=== PATIENT | female | born 1940 ===

== ENCOUNTER 2017-10-12 16:58 | Inpatient (IN) ==
[2017-10-12] MEDS ORDERED: SODIUM CHLORIDE 0.9% 500 ML IV STA (17:36)
[2017-10-12] MEDS ORDERED: PIPERACILLIN/TAZOBACTAM 3,375 MG in SODIUM CHLORIDE 0.9% 100 ML IV STA (17:36)
[2017-10-12] MEDS ORDERED: FUROSEMIDE 40 MG/4 ML VIAL IV STA (17:54)
[2017-10-12 18:09] LABS: Basophils % 0.1 % (0.0-0.8); Hematocrit 29.7 VOL% (35.7-47.0); Hemoglobin 10.1 GM/DL (12.0-16.0); Immature Granulocytes % 0.7 %; Immature Granulocytes Absolute 0.15 #; Lymphocytes % 4.7 % (21.3-54.2); Mean Corpuscular Hemoglobin 30 PG (27-34); Mean Corpuscular Volume 88.9 FL (87-102); Mean Platelet Volume 9.6 FL (9.6-12.0); Monocytes # 1.8 10*3/uL (0.11-0.8); Monocytes % 8.6 % (1.7-12.7); Neutrophils # 17.9 10*3/uL (1.4-7.4); Neutrophils % 85.9 % (38.7-73.9); Platelet Count 261 T/CUMM (130-400); Red Blood Count 3.34 MC/CUMM (3.8-5.5); Red Cell Distribution Width 13.2 % (9.3-17.3); White Blood Count 20.8 T/CUMM (4-12)
[2017-10-12 18:25] LABS: INR 1.1; PT Patient Result 11.4 SECS
[2017-10-12 18:30] LABS: Lactic Acid 1.2 MMOL/L (0.4-2.0)
[2017-10-12 18:31] LABS: Albumin 2.9 G/DL (3.4-5.0); Bilirubin,Total 0.9 MG/DL (0.2-1.0); Calcium 7.9 MG/DL (8.5-10.1); Osmolality,Calculated 271.7 MOS/KG (273-304); Potassium 3.3 MMOL/L (3.5-5.1); Total Protein 7.3 G/DL (6.4-8.3)
[2017-10-12 18:40] LABS: Lymphocytes 4 % (20-55); Segmented Neutrophils 88 % (50-85); Total Cells Counted 100
[2017-10-12] MEDS ORDERED: ACETAMINOPHEN 325 MG TABLET PO PRN (19:42)
[2017-10-12] MEDS ORDERED: MORPHINE 4 MG/1 ML VIAL IV PRN (19:42)
[2017-10-12] MEDS ORDERED: DEXTROSE 50% 25 GM/50 ML VIAL IV PRN (19:42)
[2017-10-12] MEDS ORDERED: ONDANSETRON 4 MG/2 ML VIAL IV PRN (19:42)
[2017-10-12] MEDS ORDERED: SODIUM CHLORIDE 0.9% 1,000 ML IV SCH (19:42)
[2017-10-12] MEDS ORDERED: GLUCAGON 1 MG VIAL IM PRN (19:42)
[2017-10-12] MEDS: VANCOMYCIN INJ 1,000 MG in SODIUM CHLORIDE 0.9% 250 ML IV SCH (21:37)
[2017-10-12] MEDS: POTASSIUM CHLORIDE 20 MEQ TABLET PO SCH (21:37)
[2017-10-12] MEDS: INSULIN REGULAR 100 UNIT/ML SUBCUT SCH (21:38)
[2017-10-13] MEDS ORDERED: PIPERACILLIN/TAZOBACTAM 3,375 MG in SODIUM CHLORIDE 0.9% 100 ML IV SCH (01:30)
[2017-10-13 07:03] LABS: Basophils % 0.1 % (0.0-0.8); Immature Granulocytes % 1.2 %; Immature Granulocytes Absolute 0.28 #; Lymphocytes # 1.3 10*3/uL (1.4-4.0); Lymphocytes % 5.3 % (21.3-54.2); Mean Corpuscular HGB Conc 34.6 GM/DL (32-36); Mean Corpuscular Hemoglobin 30 PG (27-34); Mean Corpuscular Volume 87.2 FL (87-102); Monocytes # 2.3 10*3/uL (0.11-0.8); Monocytes % 9.7 % (1.7-12.7); Neutrophils # 19.6 10*3/uL (1.4-7.4); Neutrophils % 83.7 % (38.7-73.9); Platelet Count 252 T/CUMM (130-400); Red Blood Count 2.98 MC/CUMM (3.8-5.5); Red Cell Distribution Width 13.4 % (9.3-17.3); White Blood Count 23.5 T/CUMM (4-12)
[2017-10-13 07:23] LABS: Band Neutrophils 2 % (0-10); Hypochromasia 1+; Lymphocytes 4 % (20-55); Microcytosis 1+; Ovalocytes Slight; Segmented Neutrophils 92 % (50-85); Total Cells Counted 100
[2017-10-13 07:24] LABS: Platelet Estimate Normal
[2017-10-13] MEDS: INSULIN REGULAR 100 UNIT/ML SUBCUT SCH ×4 (07:28→20:44)
[2017-10-13 07:35] LABS: Albumin 2.6 G/DL (3.4-5.0); Bilirubin,Total 1.7 MG/DL (0.2-1.0); Calcium 7.6 MG/DL (8.5-10.1); Osmolality,Calculated 273.2 MOS/KG (273-304); Potassium 3.7 MMOL/L (3.5-5.1); Total Protein 6.4 G/DL (6.4-8.3)
[2017-10-13] MEDS: LACTATED RINGERS 1,000 ML IV SCH (07:46)
[2017-10-13] MEDS ORDERED: BUPIVACAINE MPF 0.25% 30 ML VIAL ONE (07:49)
[2017-10-13] MEDS ORDERED: LIDOCAINE 1% 20 ML VIAL ONE (07:49)
[2017-10-13] MEDS: VANCOMYCIN INJ 1,000 MG in SODIUM CHLORIDE 0.9% 250 ML IV SCH ×2 (09:00→20:48)
[2017-10-13] MEDS ORDERED: SEVOFLURANE 1 UNIT/15 MINUTE INH ONE (09:17)
[2017-10-13] MEDS ORDERED: fentaNYL 100 MCG/2 ML VIAL ONE (09:17)
[2017-10-13] MEDS ORDERED: DEXAMETHASONE 10 MG/1 ML VIAL ONE (09:17)
[2017-10-13] MEDS ORDERED: PROPOFOL 200 MG/20 ML VIAL IV ONE (09:17)
[2017-10-13] MEDS ORDERED: PHENYLEPHRINE 1 MG/10 ML SYRINGE IV ONE (09:18)
[2017-10-13] MEDS ORDERED: ONDANSETRON 4 MG/2 ML VIAL ONE (09:18)
[2017-10-13] MEDS ORDERED: ETOMIDATE 40 MG/20 ML VIAL IV ONE (09:18)
[2017-10-13] MEDS: FUROSEMIDE 20 MG/2 ML VIAL IV SCH ×2 (10:20→17:00)
[2017-10-13] MEDS ORDERED: GLUCAGON 1 MG VIAL IM PRN (11:52)
[2017-10-13] MEDS ORDERED: DEXTROSE 50% 25 GM/50 ML VIAL IV PRN (11:52)
[2017-10-13] MEDS: POTASSIUM CHLORIDE 20 MEQ TABLET PO SCH (13:31)
[2017-10-13] MEDS: ENOXAPARIN 40 MG/0.4 ML SYRINGE SUBCUT SCH (13:32)
[2017-10-13] MEDS: PANTOPRAZOLE 40 MG TABLET PO SCH (13:32)
[2017-10-13] MEDS: MAGNESIUM OXIDE 400 MG TABLET PO SCH ×2 (15:38→20:44)
[2017-10-14] MEDS: PIPERACILLIN/TAZOBACTAM 3,375 MG in SODIUM CHLORIDE 0.9% 100 ML IV SCH ×3 (01:30→18:55)
[2017-10-14] MEDS: LACTATED RINGERS 1,000 ML IV SCH (08:00)
[2017-10-14] MEDS: INSULIN REGULAR 100 UNIT/ML SUBCUT SCH ×4 (10:00→20:52)
[2017-10-14] MEDS: POTASSIUM CHLORIDE 20 MEQ TABLET PO SCH (10:02)
[2017-10-14] MEDS: ENOXAPARIN 40 MG/0.4 ML SYRINGE SUBCUT SCH (10:02)
[2017-10-14] MEDS: FUROSEMIDE 20 MG/2 ML VIAL IV SCH ×2 (10:02→15:21)
[2017-10-14] MEDS: MAGNESIUM OXIDE 400 MG TABLET PO SCH ×3 (10:03→20:52)
[2017-10-14] MEDS: PANTOPRAZOLE 40 MG TABLET PO SCH (10:03)
[2017-10-14] MEDS: VANCOMYCIN INJ 1,000 MG in SODIUM CHLORIDE 0.9% 250 ML IV SCH ×2 (10:05→22:00)
[2017-10-15] MEDS: PIPERACILLIN/TAZOBACTAM 3,375 MG in SODIUM CHLORIDE 0.9% 100 ML IV SCH ×3 (02:56→21:29)
[2017-10-15] MEDS ORDERED: HEPARIN/NACL 0.9% 2 UNITS/ML 2,000 ML IV ONE (07:29)
[2017-10-15] MEDS ORDERED: fentaNYL 100 MCG/2 ML VIAL IV ONE (07:53)
[2017-10-15] MEDS ORDERED: MIDAZOLAM 2 MG/2 ML VIAL IV ONE (07:53)
[2017-10-15] MEDS ORDERED: HEPARIN 5,000 UNIT/1 ML VIAL IV ONE (07:53)
[2017-10-15] MEDS ORDERED: DIAZEPAM 5 MG TABLET PO ONE (07:53)
[2017-10-15] MEDS: INSULIN REGULAR 100 UNIT/ML SUBCUT SCH ×4 (08:14→21:27)
[2017-10-15] MEDS: SODIUM CHLORIDE 0.45% 1,000 ML IV SCH (08:30)
[2017-10-15] MEDS: FUROSEMIDE 20 MG/2 ML VIAL IV SCH ×2 (08:33→16:37)
[2017-10-15] MEDS ORDERED: fentaNYL 100 MCG/2 ML VIAL ONE ×2 (08:55→09:04)
[2017-10-15] MEDS ORDERED: MIDAZOLAM 2 MG/2 ML VIAL ONE ×2 (08:56→09:04)
[2017-10-15] MEDS: PANTOPRAZOLE 40 MG TABLET PO SCH (09:00)
[2017-10-15] MEDS: ENOXAPARIN 40 MG/0.4 ML SYRINGE SUBCUT SCH (09:00)
[2017-10-15] MEDS: MAGNESIUM OXIDE 400 MG TABLET PO SCH ×3 (09:00→21:27)
[2017-10-15] MEDS: POTASSIUM CHLORIDE 20 MEQ TABLET PO SCH (09:00)
[2017-10-15] MEDS ORDERED: HEPARIN 5,000 UNIT/1 ML VIAL ONE (09:08)
[2017-10-15 09:12] LABS: Osmolality,Calculated 285.1 MOS/KG (273-304); Potassium 5.1 MMOL/L (3.5-5.1)
[2017-10-15] MEDS: LACTATED RINGERS 1,000 ML IV SCH (09:55)
[2017-10-15] MEDS ORDERED: HEPARIN 5,000 UNIT/1 ML VIAL IV PRN ×2 (10:36→10:37)
[2017-10-15 10:54] LABS: Basophils % 0.1 % (0.0-0.8); Hematocrit 30.6 VOL% (35.7-47.0); Hemoglobin 10.4 GM/DL (12.0-16.0); Immature Granulocytes % 1.1 %; Immature Granulocytes Absolute 0.32 #; Lymphocytes # 1.2 10*3/uL (1.4-4.0); Mean Corpuscular Hemoglobin 31 PG (27-34); Mean Corpuscular Volume 90.3 FL (87-102); Mean Platelet Volume 10.4 FL (9.6-12.0); Monocytes % 6.7 % (1.7-12.7); Neutrophils # 26.4 10*3/uL (1.4-7.4); Neutrophils % 88.1 % (38.7-73.9); Platelet Count 346 T/CUMM (130-400); Red Blood Count 3.39 MC/CUMM (3.8-5.5); Red Cell Distribution Width 13.7 % (9.3-17.3)
[2017-10-15 11:12] LABS: Lymphocytes 4 % (20-55); Platelet Estimate Adequate; Segmented Neutrophils 87 % (50-85); Total Cells Counted 100
[2017-10-15 11:13] LABS: Hypochromasia 1+; Microcytosis 1+; Ovalocytes Slight
[2017-10-15 13:29] LABS: Calcium 7.9 MG/DL (8.5-10.1); Osmolality,Calculated 282.2 MOS/KG (273-304); Potassium 4.6 MMOL/L (3.5-5.1)
[2017-10-15] MEDS ORDERED: CLOPIDOGREL 300 MG TABLET PO ONE (13:30)
[2017-10-16] MEDS: PIPERACILLIN/TAZOBACTAM 3,375 MG in SODIUM CHLORIDE 0.9% 100 ML IV SCH ×3 (05:45→20:22)
[2017-10-16 06:10] LABS: Basophils % 0.2 % (0.0-0.8); Eosinophils # 0.4 10*3/uL (0.0-0.87); Eosinophils % 2.2 % (0.00-10.9); Hemoglobin 10.1 GM/DL (12.0-16.0); Immature Granulocytes % 1.1 %; Lymphocytes # 1.4 10*3/uL (1.4-4.0); Lymphocytes % 8.3 % (21.3-54.2); Mean Corpuscular HGB Conc 34.8 GM/DL (32-36); Mean Corpuscular Hemoglobin 31 PG (27-34); Mean Corpuscular Volume 88.4 FL (87-102); Mean Platelet Volume 10.2 FL (9.6-12.0); Monocytes # 1.2 10*3/uL (0.11-0.8); Monocytes % 7.1 % (1.7-12.7); Neutrophils # 14.2 10*3/uL (1.4-7.4); Neutrophils % 81.1 % (38.7-73.9); Platelet Count 333 T/CUMM (130-400); Red Blood Count 3.28 MC/CUMM (3.8-5.5); Red Cell Distribution Width 13.8 % (9.3-17.3); White Blood Count 17.4 T/CUMM (4-12)
[2017-10-16 06:35] LABS: Calcium 7.6 MG/DL (8.5-10.1); Osmolality,Calculated 285.1 MOS/KG (273-304); Potassium 4.1 MMOL/L (3.5-5.1)
[2017-10-16] MEDS: LACTATED RINGERS 1,000 ML IV SCH (08:11)
[2017-10-16] MEDS: VANCOMYCIN INJ 1,000 MG in SODIUM CHLORIDE 0.9% 250 ML IV SCH (09:09)
[2017-10-16] MEDS: FUROSEMIDE 20 MG/2 ML VIAL IV SCH ×2 (09:12→15:58)
[2017-10-16] MEDS: INSULIN REGULAR 100 UNIT/ML SUBCUT SCH ×4 (09:16→20:19)
[2017-10-16] MEDS: ENOXAPARIN 40 MG/0.4 ML SYRINGE SUBCUT SCH (09:16)
[2017-10-16] MEDS: PANTOPRAZOLE 40 MG TABLET PO SCH (09:17)
[2017-10-16] MEDS: MAGNESIUM OXIDE 400 MG TABLET PO SCH ×3 (09:17→20:19)
[2017-10-16] MEDS: CLOPIDOGREL 75 MG TABLET PO SCH (09:17)
[2017-10-16] MEDS: POTASSIUM CHLORIDE 20 MEQ TABLET PO SCH (09:17)
[2017-10-16 18:40] LABS: Apearance,Urine CLEAR (Clear); Bacteria,Urine Occasional /HPF (Few); Bilirubin,Urine Negative (Negative); Blood, Urine Small mg/dL (Negative); Glucose,Urine (UA) Negative (Negative); Ketones,Urine Negative (Negative); Mucus,Urine Occasional /LPF (Occasional); Nitrite,Urine Negative (Negative); Protein,Urine Negative; RBC,Urine 1 /HPF (0-4); Squamous Epithelial Cell,Urine Occasional /HPF (0-10); Urine Color Straw (Yellow); Urine Specific Gravity 1.009 (1.001-1.035); Urine Urobilinogen < 2.0 EU/DL (0.2-1.0); WBC,Urine 2 /HPF (0-6)
[2017-10-17] MEDS: PIPERACILLIN/TAZOBACTAM 3,375 MG in SODIUM CHLORIDE 0.9% 100 ML IV SCH ×3 (04:06→20:32)
[2017-10-17] MEDS: SODIUM CHLORIDE 0.45% 1,000 ML IV SCH (04:06)
[2017-10-17 06:35] LABS: Basophils % 0.3 % (0.0-0.8); Eosinophils # 0.6 10*3/uL (0.0-0.87); Eosinophils % 3.6 % (0.00-10.9); Hematocrit 28.2 VOL% (35.7-47.0); Hemoglobin 9.4 GM/DL (12.0-16.0); Immature Granulocytes % 1.6 %; Immature Granulocytes Absolute 0.25 #; Lymphocytes # 1.5 10*3/uL (1.4-4.0); Lymphocytes % 9.9 % (21.3-54.2); Mean Corpuscular HGB Conc 33.3 GM/DL (32-36); Mean Corpuscular Hemoglobin 30 PG (27-34); Mean Platelet Volume 9.8 FL (9.6-12.0); Monocytes # 1.2 10*3/uL (0.11-0.8); Monocytes % 7.6 % (1.7-12.7); NRBC # 0.02 10*3/uL; Neutrophils # 11.9 10*3/uL (1.4-7.4); Platelet Count 332 T/CUMM (130-400); Red Cell Distribution Width 13.9 % (9.3-17.3); White Blood Count 15.4 T/CUMM (4-12)
[2017-10-17 06:54] LABS: Calcium 7.7 MG/DL (8.5-10.1); Potassium 4.4 MMOL/L (3.5-5.1)
[2017-10-17] MEDS: FUROSEMIDE 20 MG/2 ML VIAL IV SCH ×2 (09:44→18:43)
[2017-10-17] MEDS: MAGNESIUM OXIDE 400 MG TABLET PO SCH ×3 (09:47→20:32)
[2017-10-17] MEDS: VANCOMYCIN INJ 1,000 MG in SODIUM CHLORIDE 0.9% 250 ML IV SCH (09:47)
[2017-10-17] MEDS: PANTOPRAZOLE 40 MG TABLET PO SCH (09:47)
[2017-10-17] MEDS: CLOPIDOGREL 75 MG TABLET PO SCH (09:47)
[2017-10-17] MEDS: POTASSIUM CHLORIDE 20 MEQ TABLET PO SCH (09:47)
[2017-10-17] MEDS: ENOXAPARIN 40 MG/0.4 ML SYRINGE SUBCUT SCH (09:48)
[2017-10-17] MEDS: INSULIN REGULAR 100 UNIT/ML SUBCUT SCH ×4 (09:48→20:33)
[2017-10-18] MEDS: SODIUM CHLORIDE 0.45% 1,000 ML IV SCH (02:18)
[2017-10-18] MEDS: PIPERACILLIN/TAZOBACTAM 3,375 MG in SODIUM CHLORIDE 0.9% 100 ML IV SCH ×3 (04:15→20:47)
[2017-10-18 04:17] LABS: Basophils % 0.2 % (0.0-0.8); Eosinophils # 0.6 10*3/uL (0.0-0.87); Eosinophils % 3.5 % (0.00-10.9); Hematocrit 28.2 VOL% (35.7-47.0); Hemoglobin 9.4 GM/DL (12.0-16.0); Immature Granulocytes % 1.3 %; Immature Granulocytes Absolute 0.23 #; Lymphocytes # 1.4 10*3/uL (1.4-4.0); Lymphocytes % 8.1 % (21.3-54.2); Mean Corpuscular HGB Conc 33.3 GM/DL (32-36); Mean Corpuscular Hemoglobin 30 PG (27-34); Mean Platelet Volume 9.2 FL (9.6-12.0); Monocytes # 1.3 10*3/uL (0.11-0.8); Monocytes % 7.7 % (1.7-12.7); Neutrophils # 13.6 10*3/uL (1.4-7.4); Neutrophils % 79.2 % (38.7-73.9); Platelet Count 333 T/CUMM (130-400); Red Cell Distribution Width 13.9 % (9.3-17.3); White Blood Count 17.2 T/CUMM (4-12)
[2017-10-18 04:45] LABS: Calcium 8.1 MG/DL (8.5-10.1); Potassium 4.7 MMOL/L (3.5-5.1)
[2017-10-18] MEDS: INSULIN REGULAR 100 UNIT/ML SUBCUT SCH ×4 (09:26→20:50)
[2017-10-18] MEDS: VANCOMYCIN INJ 1,000 MG in SODIUM CHLORIDE 0.9% 250 ML IV SCH (09:28)
[2017-10-18] MEDS: PANTOPRAZOLE 40 MG TABLET PO SCH (09:33)
[2017-10-18] MEDS: CLOPIDOGREL 75 MG TABLET PO SCH (09:34)
[2017-10-18] MEDS: POTASSIUM CHLORIDE 20 MEQ TABLET PO SCH (09:35)
[2017-10-18] MEDS: ENOXAPARIN 40 MG/0.4 ML SYRINGE SUBCUT SCH (09:39)
[2017-10-18] MEDS: MAGNESIUM OXIDE 400 MG TABLET PO SCH ×3 (09:41→20:45)
[2017-10-18] MEDS: FUROSEMIDE 20 MG/2 ML VIAL IV SCH (09:42)
[2017-10-18] MEDS ORDERED: amLODIPine 5 MG TABLET PO SCH (12:00)
[2017-10-18] MEDS: CARVEDILOL 3.125 MG TABLET PO SCH ×2 (13:17→20:50)
[2017-10-18] MEDS: INSULIN NPH/REGULAR 70/30 100 UNIT/ML SUBCUT SCH (18:15)
[2017-10-18] MEDS: SIMVASTATIN 20 MG TABLET PO SCH (20:45)
[2017-10-19] MEDS: PIPERACILLIN/TAZOBACTAM 3,375 MG in SODIUM CHLORIDE 0.9% 100 ML IV SCH ×3 (04:47→21:18)
[2017-10-19 07:02] LABS: Basophils # 0.1 10*3/uL (0.0-0.2); Basophils % 0.3 % (0.0-0.8); Eosinophils # 0.8 10*3/uL (0.0-0.87); Eosinophils % 4.5 % (0.00-10.9); Hematocrit 28.4 VOL% (35.7-47.0); Hemoglobin 9.4 GM/DL (12.0-16.0); Immature Granulocytes % 1.1 %; Immature Granulocytes Absolute 0.18 #; Lymphocytes # 1.1 10*3/uL (1.4-4.0); Lymphocytes % 6.8 % (21.3-54.2); Mean Corpuscular HGB Conc 33.1 GM/DL (32-36); Mean Corpuscular Hemoglobin 30 PG (27-34); Mean Corpuscular Volume 90.2 FL (87-102); Monocytes # 1.4 10*3/uL (0.11-0.8); Monocytes % 8.1 % (1.7-12.7); Neutrophils # 13.3 10*3/uL (1.4-7.4); Neutrophils % 79.2 % (38.7-73.9); Platelet Count 346 T/CUMM (130-400); Red Blood Count 3.15 MC/CUMM (3.8-5.5); Red Cell Distribution Width 14.2 % (9.3-17.3); White Blood Count 16.7 T/CUMM (4-12)
[2017-10-19] MEDS ORDERED: LIDOCAINE 1% 20 ML VIAL ONE (07:16)
[2017-10-19] MEDS: INSULIN REGULAR 100 UNIT/ML SUBCUT SCH ×4 (07:30→20:42)
[2017-10-19] MEDS: INSULIN NPH/REGULAR 70/30 100 UNIT/ML SUBCUT SCH ×2 (07:30→15:56)
[2017-10-19 07:37] LABS: Albumin 1.9 G/DL (3.4-5.0); Bilirubin,Total 0.7 MG/DL (0.2-1.0); Osmolality,Calculated 274.1 MOS/KG (273-304); Potassium 4.6 MMOL/L (3.5-5.1); Total Protein 6.3 G/DL (6.4-8.3)
[2017-10-19] MEDS ORDERED: PROPOFOL 200 MG/20 ML VIAL IV ONE (07:49)
[2017-10-19] MEDS ORDERED: ONDANSETRON 4 MG/2 ML VIAL ONE (07:50)
[2017-10-19] MEDS ORDERED: SEVOFLURANE 1 UNIT/15 MINUTE INH ONE (07:50)
[2017-10-19] MEDS: CARVEDILOL 3.125 MG TABLET PO SCH ×3 (08:45→21:18)
[2017-10-19] MEDS: MAGNESIUM OXIDE 400 MG TABLET PO SCH ×3 (08:45→21:18)
[2017-10-19] MEDS: POTASSIUM CHLORIDE 20 MEQ TABLET PO SCH (08:45)
[2017-10-19] MEDS: ENOXAPARIN 40 MG/0.4 ML SYRINGE SUBCUT SCH (08:46)
[2017-10-19] MEDS: PANTOPRAZOLE 40 MG TABLET PO SCH (08:46)
[2017-10-19] MEDS: CLOPIDOGREL 75 MG TABLET PO SCH (08:46)
[2017-10-19] MEDS: FUROSEMIDE 20 MG TABLET PO SCH (08:46)
[2017-10-19] MEDS: VANCOMYCIN INJ 1,000 MG in SODIUM CHLORIDE 0.9% 250 ML IV SCH (12:15)
[2017-10-19] MEDS: amLODIPine 10 MG TABLET PO SCH (14:37)
[2017-10-19] MEDS: SIMVASTATIN 20 MG TABLET PO SCH (21:18)
[2017-10-20] MEDS: PIPERACILLIN/TAZOBACTAM 3,375 MG in SODIUM CHLORIDE 0.9% 100 ML IV SCH ×3 (05:33→23:18)
[2017-10-20 05:47] LABS: Basophils % 0.2 % (0.0-0.8); Eosinophils # 0.5 10*3/uL (0.0-0.87); Hematocrit 28.6 VOL% (35.7-47.0); Hemoglobin 9.3 GM/DL (12.0-16.0); Immature Granulocytes % 1.1 %; Immature Granulocytes Absolute 0.15 #; Lymphocytes # 1.1 10*3/uL (1.4-4.0); Lymphocytes % 8.2 % (21.3-54.2); Mean Corpuscular HGB Conc 32.5 GM/DL (32-36); Mean Corpuscular Hemoglobin 30 PG (27-34); Mean Corpuscular Volume 93.5 FL (87-102); Mean Platelet Volume 9.3 FL (9.6-12.0); Monocytes # 1.1 10*3/uL (0.11-0.8); Monocytes % 8.4 % (1.7-12.7); Neutrophils # 10.4 10*3/uL (1.4-7.4); Neutrophils % 78.1 % (38.7-73.9); Platelet Count 357 T/CUMM (130-400); Red Blood Count 3.06 MC/CUMM (3.8-5.5); Red Cell Distribution Width 14.4 % (9.3-17.3); White Blood Count 13.3 T/CUMM (4-12)
[2017-10-20 06:07] LABS: Calcium 7.8 MG/DL (8.5-10.1); Potassium 4.9 MMOL/L (3.5-5.1)
[2017-10-20] MEDS: INSULIN REGULAR 100 UNIT/ML SUBCUT SCH ×4 (09:56→21:35)
[2017-10-20] MEDS: PANTOPRAZOLE 40 MG TABLET PO SCH (11:21)
[2017-10-20] MEDS: amLODIPine 10 MG TABLET PO SCH (11:22)
[2017-10-20] MEDS: POTASSIUM CHLORIDE 20 MEQ TABLET PO SCH (11:22)
[2017-10-20] MEDS: CARVEDILOL 3.125 MG TABLET PO SCH ×2 (11:22→21:13)
[2017-10-20] MEDS: FUROSEMIDE 20 MG TABLET PO SCH (11:22)
[2017-10-20] MEDS: MAGNESIUM OXIDE 400 MG TABLET PO SCH ×3 (11:22→21:14)
[2017-10-20] MEDS: ENOXAPARIN 40 MG/0.4 ML SYRINGE SUBCUT SCH (11:23)
[2017-10-20] MEDS: CLOPIDOGREL 75 MG TABLET PO SCH (11:23)
[2017-10-20] MEDS: VANCOMYCIN INJ 1,000 MG in SODIUM CHLORIDE 0.9% 250 ML IV SCH (11:24)
[2017-10-20] MEDS: INSULIN NPH/REGULAR 70/30 100 UNIT/ML SUBCUT SCH ×2 (12:06→17:17)
[2017-10-20] MEDS: SIMVASTATIN 20 MG TABLET PO SCH (21:14)
[2017-10-21 06:15] LABS: Basophils % 0.2 % (0.0-0.8); Eosinophils # 0.4 10*3/uL (0.0-0.87); Eosinophils % 3.3 % (0.00-10.9); Hematocrit 26.2 VOL% (35.7-47.0); Hemoglobin 8.5 GM/DL (12.0-16.0); Immature Granulocytes % 1.2 %; Immature Granulocytes Absolute 0.15 #; Lymphocytes # 1.1 10*3/uL (1.4-4.0); Lymphocytes % 8.6 % (21.3-54.2); Mean Corpuscular HGB Conc 32.4 GM/DL (32-36); Mean Corpuscular Hemoglobin 30 PG (27-34); Mean Platelet Volume 9.1 FL (9.6-12.0); Monocytes # 1.4 10*3/uL (0.11-0.8); Monocytes % 11.2 % (1.7-12.7); Neutrophils # 9.6 10*3/uL (1.4-7.4); Neutrophils % 75.5 % (38.7-73.9); Platelet Count 334 T/CUMM (130-400); Red Blood Count 2.88 MC/CUMM (3.8-5.5); Red Cell Distribution Width 14.2 % (9.3-17.3); White Blood Count 12.8 T/CUMM (4-12)
[2017-10-21 06:45] LABS: Calcium 7.7 MG/DL (8.5-10.1); Potassium 4.4 MMOL/L (3.5-5.1)
[2017-10-21] MEDS: INSULIN REGULAR 100 UNIT/ML SUBCUT SCH ×4 (08:03→20:50)
[2017-10-21] MEDS: INSULIN NPH/REGULAR 70/30 100 UNIT/ML SUBCUT SCH ×2 (08:13→17:03)
[2017-10-21] MEDS: PANTOPRAZOLE 40 MG TABLET PO SCH (11:10)
[2017-10-21] MEDS: CLOPIDOGREL 75 MG TABLET PO SCH (11:10)
[2017-10-21] MEDS: amLODIPine 10 MG TABLET PO SCH (11:10)
[2017-10-21] MEDS: FUROSEMIDE 20 MG TABLET PO SCH (11:10)
[2017-10-21] MEDS: CARVEDILOL 3.125 MG TABLET PO SCH ×2 (11:11→20:51)
[2017-10-21] MEDS: ENOXAPARIN 40 MG/0.4 ML SYRINGE SUBCUT SCH (11:11)
[2017-10-21] MEDS: MAGNESIUM OXIDE 400 MG TABLET PO SCH ×3 (11:11→20:51)
[2017-10-21] MEDS: PIPERACILLIN/TAZOBACTAM 3,375 MG in SODIUM CHLORIDE 0.9% 100 ML IV SCH ×2 (11:12→17:07)
[2017-10-21] MEDS: POTASSIUM CHLORIDE 20 MEQ TABLET PO SCH (11:35)
[2017-10-21] MEDS: CLINDAMYCIN INJ 600 MG in PREMIX 1 EACH IV SCH ×2 (15:14→21:42)
[2017-10-21] MEDS: SIMVASTATIN 20 MG TABLET PO SCH (20:51)
[2017-10-22] MEDS: PIPERACILLIN/TAZOBACTAM 3,375 MG in SODIUM CHLORIDE 0.9% 100 ML IV SCH ×3 (01:14→23:25)
[2017-10-22] MEDS: CLINDAMYCIN INJ 600 MG in PREMIX 1 EACH IV SCH ×3 (04:35→20:55)
[2017-10-22] MEDS ORDERED: FAMOTIDINE 20 MG TABLET PO ONE (05:00)
[2017-10-22] MEDS ORDERED: DIAZEPAM 5 MG TABLET PO ONE (05:00)
[2017-10-22 06:04] LABS: Basophils % 0.2 % (0.0-0.8); Eosinophils # 0.4 10*3/uL (0.0-0.87); Eosinophils % 3.5 % (0.00-10.9); Hematocrit 25.4 VOL% (35.7-47.0); Hemoglobin 8.3 GM/DL (12.0-16.0); Immature Granulocytes % 1.1 %; Immature Granulocytes Absolute 0.13 #; Lymphocytes % 8.4 % (21.3-54.2); Mean Corpuscular HGB Conc 32.7 GM/DL (32-36); Mean Corpuscular Hemoglobin 30 PG (27-34); Mean Platelet Volume 9.5 FL (9.6-12.0); Monocytes # 1.3 10*3/uL (0.11-0.8); Monocytes % 10.1 % (1.7-12.7); Neutrophils # 9.5 10*3/uL (1.4-7.4); Neutrophils % 76.7 % (38.7-73.9); Platelet Count 339 T/CUMM (130-400); Red Blood Count 2.79 MC/CUMM (3.8-5.5); Red Cell Distribution Width 14.3 % (9.3-17.3); White Blood Count 12.3 T/CUMM (4-12)
[2017-10-22] MEDS: CARVEDILOL 3.125 MG TABLET PO SCH ×3 (06:30→20:56)
[2017-10-22] MEDS: amLODIPine 10 MG TABLET PO SCH ×2 (06:30→09:00)
[2017-10-22] MEDS: INSULIN REGULAR 100 UNIT/ML SUBCUT SCH ×4 (06:32→21:02)
[2017-10-22] MEDS: INSULIN NPH/REGULAR 70/30 100 UNIT/ML SUBCUT SCH ×2 (06:32→17:24)
[2017-10-22 06:43] LABS: Calcium 7.9 MG/DL (8.5-10.1); Osmolality,Calculated 275.8 MOS/KG (273-304); Potassium 4.4 MMOL/L (3.5-5.1)
[2017-10-22] MEDS ORDERED: ROPIVACAINE 0.5% 30 ML VIAL ONE (07:51)
[2017-10-22] MEDS ORDERED: PROPOFOL 200 MG/20 ML VIAL IV ONE ×2 (09:10→09:27)
[2017-10-22] MEDS ORDERED: ONDANSETRON 4 MG/2 ML VIAL ONE (09:27)
[2017-10-22] MEDS ORDERED: fentaNYL 100 MCG/2 ML VIAL ONE (09:27)
[2017-10-22] MEDS ORDERED: MIDAZOLAM 2 MG/2 ML VIAL ONE (09:27)
[2017-10-22] MEDS ORDERED: SEVOFLURANE 1 UNIT/15 MINUTE INH ONE (09:27)
[2017-10-22] MEDS ORDERED: ePHEDrine 50 MG/ML AMP ONE (09:27)
[2017-10-22] MEDS ORDERED: ACETAMINOPHEN 1,000 MG/100 ML VIAL IV ONE (09:28)
[2017-10-22] MEDS ORDERED: ETOMIDATE 40 MG/20 ML VIAL IV ONE (09:28)
[2017-10-22] MEDS: MAGNESIUM OXIDE 400 MG TABLET PO SCH ×3 (12:32→20:56)
[2017-10-22] MEDS: FUROSEMIDE 20 MG TABLET PO SCH (12:32)
[2017-10-22] MEDS: PANTOPRAZOLE 40 MG TABLET PO SCH (12:32)
[2017-10-22] MEDS: POTASSIUM CHLORIDE 20 MEQ TABLET PO SCH (12:34)
[2017-10-22] MEDS: ENOXAPARIN 40 MG/0.4 ML SYRINGE SUBCUT SCH (12:50)
[2017-10-22] MEDS: CLOPIDOGREL 75 MG TABLET PO SCH (12:53)
[2017-10-22] MEDS: SIMVASTATIN 20 MG TABLET PO SCH (20:51)
[2017-10-23] MEDS: CLINDAMYCIN INJ 600 MG in PREMIX 1 EACH IV SCH ×3 (05:00→20:16)
[2017-10-23] MEDS: PIPERACILLIN/TAZOBACTAM 3,375 MG in SODIUM CHLORIDE 0.9% 100 ML IV SCH ×3 (06:20→23:49)
[2017-10-23 06:30] LABS: Basophils # 0.1 10*3/uL (0.0-0.2); Basophils % 0.5 % (0.0-0.8); Eosinophils # 0.5 10*3/uL (0.0-0.87); Eosinophils % 3.7 % (0.00-10.9); Hematocrit 27.3 VOL% (35.7-47.0); Immature Granulocytes % 1.1 %; Immature Granulocytes Absolute 0.14 #; Lymphocytes # 0.9 10*3/uL (1.4-4.0); Lymphocytes % 6.5 % (21.3-54.2); Mean Corpuscular Hemoglobin 30 PG (27-34); Mean Corpuscular Volume 90.1 FL (87-102); Mean Platelet Volume 9.4 FL (9.6-12.0); Monocytes # 1.3 10*3/uL (0.11-0.8); Monocytes % 9.5 % (1.7-12.7); Neutrophils # 10.5 10*3/uL (1.4-7.4); Neutrophils % 78.7 % (38.7-73.9); Platelet Count 365 T/CUMM (130-400); Red Blood Count 3.03 MC/CUMM (3.8-5.5); Red Cell Distribution Width 14.3 % (9.3-17.3); White Blood Count 13.3 T/CUMM (4-12)
[2017-10-23 07:12] LABS: Calcium 7.8 MG/DL (8.5-10.1); Osmolality,Calculated 272.2 MOS/KG (273-304); Potassium 4.2 MMOL/L (3.5-5.1)
[2017-10-23] MEDS: INSULIN REGULAR 100 UNIT/ML SUBCUT SCH ×4 (07:27→21:39)
[2017-10-23] MEDS: ENOXAPARIN 40 MG/0.4 ML SYRINGE SUBCUT SCH (10:13)
[2017-10-23] MEDS: CARVEDILOL 3.125 MG TABLET PO SCH ×2 (10:13→21:39)
[2017-10-23] MEDS: FUROSEMIDE 20 MG TABLET PO SCH (10:13)
[2017-10-23] MEDS: INSULIN NPH/REGULAR 70/30 100 UNIT/ML SUBCUT SCH ×2 (10:14→16:55)
[2017-10-23] MEDS: CLOPIDOGREL 75 MG TABLET PO SCH (10:14)
[2017-10-23] MEDS: MAGNESIUM OXIDE 400 MG TABLET PO SCH ×3 (10:14→21:39)
[2017-10-23] MEDS: amLODIPine 10 MG TABLET PO SCH (10:14)
[2017-10-23] MEDS: PANTOPRAZOLE 40 MG TABLET PO SCH (10:14)
[2017-10-23] MEDS: POTASSIUM CHLORIDE 20 MEQ TABLET PO SCH (10:15)
[2017-10-23] MEDS: SIMVASTATIN 20 MG TABLET PO SCH (21:39)
[2017-10-24] MEDS: CLINDAMYCIN INJ 600 MG in PREMIX 1 EACH IV SCH ×3 (04:41→21:08)
[2017-10-24] MEDS: PIPERACILLIN/TAZOBACTAM 3,375 MG in SODIUM CHLORIDE 0.9% 100 ML IV SCH ×3 (06:15→23:56)
[2017-10-24] MEDS: INSULIN NPH/REGULAR 70/30 100 UNIT/ML SUBCUT SCH ×2 (07:36→17:15)
[2017-10-24] MEDS: INSULIN REGULAR 100 UNIT/ML SUBCUT SCH ×4 (07:36→21:01)
[2017-10-24] MEDS: CARVEDILOL 3.125 MG TABLET PO SCH ×2 (09:17→21:01)
[2017-10-24] MEDS: FUROSEMIDE 20 MG TABLET PO SCH (09:17)
[2017-10-24] MEDS: POTASSIUM CHLORIDE 20 MEQ TABLET PO SCH (09:17)
[2017-10-24] MEDS: ENOXAPARIN 40 MG/0.4 ML SYRINGE SUBCUT SCH (09:17)
[2017-10-24] MEDS: CLOPIDOGREL 75 MG TABLET PO SCH (09:18)
[2017-10-24] MEDS: amLODIPine 10 MG TABLET PO SCH (09:18)
[2017-10-24] MEDS: PANTOPRAZOLE 40 MG TABLET PO SCH (09:18)
[2017-10-24] MEDS: MAGNESIUM OXIDE 400 MG TABLET PO SCH ×3 (09:18→21:01)
[2017-10-24] MEDS: POLYETHYLENE GLYCOL POWDER 17 GM PACK PO SCH (10:43)
[2017-10-24] MEDS: SIMVASTATIN 20 MG TABLET PO SCH (21:01)
[2017-10-25] MEDS: CLINDAMYCIN INJ 600 MG in PREMIX 1 EACH IV SCH ×3 (04:40→20:55)
[2017-10-25 05:08] LABS: Basophils % 0.4 % (0.0-0.8); Eosinophils # 0.4 10*3/uL (0.0-0.87); Eosinophils % 4.2 % (0.00-10.9); Hemoglobin 7.9 GM/DL (12.0-16.0); Immature Granulocytes % 0.6 %; Immature Granulocytes Absolute 0.06 #; Lymphocytes # 1.3 10*3/uL (1.4-4.0); Lymphocytes % 12.3 % (21.3-54.2); Mean Corpuscular HGB Conc 32.9 GM/DL (32-36); Mean Corpuscular Hemoglobin 30 PG (27-34); Mean Corpuscular Volume 91.3 FL (87-102); Mean Platelet Volume 9.4 FL (9.6-12.0); Monocytes # 1.2 10*3/uL (0.11-0.8); Monocytes % 11.3 % (1.7-12.7); Neutrophils # 7.3 10*3/uL (1.4-7.4); Neutrophils % 71.2 % (38.7-73.9); Platelet Count 329 T/CUMM (130-400); Red Blood Count 2.63 MC/CUMM (3.8-5.5); Red Cell Distribution Width 14.5 % (9.3-17.3); White Blood Count 10.3 T/CUMM (4-12)
[2017-10-25 05:35] LABS: Calcium 7.4 MG/DL (8.5-10.1); Osmolality,Calculated 270.4 MOS/KG (273-304); Potassium 5.1 MMOL/L (3.5-5.1)
[2017-10-25] MEDS: PIPERACILLIN/TAZOBACTAM 3,375 MG in SODIUM CHLORIDE 0.9% 100 ML IV SCH ×2 (07:02→16:39)
[2017-10-25] MEDS: INSULIN REGULAR 100 UNIT/ML SUBCUT SCH ×4 (08:56→20:53)
[2017-10-25] MEDS: INSULIN NPH/REGULAR 70/30 100 UNIT/ML SUBCUT SCH ×2 (08:56→16:41)
[2017-10-25] MEDS: ENOXAPARIN 40 MG/0.4 ML SYRINGE SUBCUT SCH (08:57)
[2017-10-25] MEDS: PANTOPRAZOLE 40 MG TABLET PO SCH (08:59)
[2017-10-25] MEDS: POLYETHYLENE GLYCOL POWDER 17 GM PACK PO SCH (08:59)
[2017-10-25] MEDS: MAGNESIUM OXIDE 400 MG TABLET PO SCH ×3 (09:00→20:52)
[2017-10-25] MEDS: CLOPIDOGREL 75 MG TABLET PO SCH (09:00)
[2017-10-25] MEDS: CARVEDILOL 3.125 MG TABLET PO SCH ×2 (09:00→20:52)
[2017-10-25] MEDS: amLODIPine 10 MG TABLET PO SCH (09:00)
[2017-10-25] MEDS: FUROSEMIDE 20 MG TABLET PO SCH (09:00)
[2017-10-25] MEDS: POTASSIUM CHLORIDE 20 MEQ TABLET PO SCH (09:00)
[2017-10-25] MEDS ORDERED: ERGOCALCIFEROL 50,000 UNIT CAPSULE PO SCH (09:00)
[2017-10-25] MEDS: SIMVASTATIN 20 MG TABLET PO SCH (20:52)
[2017-10-26] MEDS: CLINDAMYCIN INJ 600 MG in PREMIX 1 EACH IV SCH (03:07)
[2017-10-26 05:38] LABS: Basophils # 0.1 10*3/uL (0.0-0.2); Basophils % 0.6 % (0.0-0.8); Eosinophils # 0.4 10*3/uL (0.0-0.87); Eosinophils % 4.5 % (0.00-10.9); Hematocrit 22.7 VOL% (35.7-47.0); Hemoglobin 7.4 GM/DL (12.0-16.0); Immature Granulocytes % 0.6 %; Immature Granulocytes Absolute 0.05 #; Lymphocytes # 1.2 10*3/uL (1.4-4.0); Lymphocytes % 14.8 % (21.3-54.2); Mean Corpuscular HGB Conc 32.6 GM/DL (32-36); Mean Corpuscular Hemoglobin 30 PG (27-34); Mean Corpuscular Volume 91.5 FL (87-102); Mean Platelet Volume 9.3 FL (9.6-12.0); Monocytes # 1.1 10*3/uL (0.11-0.8); Monocytes % 13.4 % (1.7-12.7); Neutrophils # 5.5 10*3/uL (1.4-7.4); Neutrophils % 66.1 % (38.7-73.9); Platelet Count 319 T/CUMM (130-400); Red Blood Count 2.48 MC/CUMM (3.8-5.5); Red Cell Distribution Width 15.1 % (9.3-17.3); White Blood Count 8.3 T/CUMM (4-12)
[2017-10-26 05:53] LABS: Calcium 7.7 MG/DL (8.5-10.1); Osmolality,Calculated 270.2 MOS/KG (273-304); Potassium 5.5 MMOL/L (3.5-5.1)
[2017-10-26] MEDS: INSULIN REGULAR 100 UNIT/ML SUBCUT SCH ×3 (07:59→16:47)
[2017-10-26] MEDS ORDERED: SODIUM POLYSTYRENE SULFATE 15 GM/60 ML BOTTLE PO ONE (08:24)
[2017-10-26] MEDS: ENOXAPARIN 40 MG/0.4 ML SYRINGE SUBCUT SCH (08:26)
[2017-10-26] MEDS: POTASSIUM CHLORIDE 20 MEQ TABLET PO SCH (08:26)
[2017-10-26] MEDS: INSULIN NPH/REGULAR 70/30 100 UNIT/ML SUBCUT SCH ×2 (09:16→16:47)
[2017-10-26] MEDS: POLYETHYLENE GLYCOL POWDER 17 GM PACK PO SCH (09:16)
[2017-10-26] MEDS: CARVEDILOL 3.125 MG TABLET PO SCH (09:16)
[2017-10-26] MEDS: PANTOPRAZOLE 40 MG TABLET PO SCH (09:16)
[2017-10-26] MEDS: CLOPIDOGREL 75 MG TABLET PO SCH (09:16)
[2017-10-26] MEDS: amLODIPine 10 MG TABLET PO SCH (09:16)
[2017-10-26] MEDS: MAGNESIUM OXIDE 400 MG TABLET PO SCH ×2 (09:16→15:14)
[2017-10-26] MEDS: FUROSEMIDE 20 MG TABLET PO SCH (09:16)
[2017-10-26 17:21] VITALS: BP 143/54
== END 2017-10-26 17:45 | DRG 239 ==
LOC: EDUNIT# → EDBD → N.ED 16:58 → N.EDINP 18:01 → N.3E 18:35
PROVIDERS: ADMIT Surgery; ATTEND Surgery